=== PATIENT | male | born 1970 | race Caucasian/White ===

== ENCOUNTER → 2017-12-23 | Outpatient (CLI) | payer OTHER ==
[~2017-12-23] MED LIST: LISINOPRIL10 MG PO
[2017-12-23 10:14] LABS: BASOPHILS # (AUTO) 0.1 (0.0-0.1); BASOPHILS % 0.6 % (0.0-1.0); EOSINOPHILS # (AUTO) 0.2 (0.0-0.4); HEMATOCRIT 46.8 % (38.2-49.6); MEAN CORPUSCULAR HEMOGLOBIN 36.3 pg (28-32); MEAN CORPUSCULAR HGB CONC 34.2 g/dL (31-35); MEAN CORPUSCULAR VOLUME 106.1 fL (81-99); MONOCYTES # (AUTO) 0.8 (0.2-0.8); MONOCYTES % 7.7 % (4.4-11.3); NEUTROPHILS # (AUTO) 7.1 (2.1-6.9); NEUTROPHILS % 69.4 % (38.7-80.0); PLATELET COUNT 230 x10e3/uL (140-360); RED BLOOD COUNT 4.41 x10e6/uL (4.3-5.7); RED CELL DISTRIBUTION WIDTH 13.4 % (11.7-14.4)
[2017-12-23 10:29] LABS: INR 0.93; PROTHROMBIN TIME 13.3 seconds (11.9-14.5)
[2017-12-23 10:30] LABS: PARTIAL THROMBOPLASTIN TIME 27.7 seconds (23.8-35.5)
[2017-12-23 10:32] LABS: ALBUMIN 4.1 g/dL (3.5-5.0); BILIRUBIN,DIRECT 0.4 mg/dL (0.0-0.5)
[2017-12-23 10:51] LABS: FERRITIN 1657.7 ng/mL (21.81-274.66)
--- NOTE | 2017-12-26 07:32 | Diagnostic Imaging Report ---
PROCEDURE:ABDOMINAL ULTRASOUND COMPARISON:None. INDICATIONS:ELEVATED LIVER ENZYMES FINDINGS: Exam somewhat limited by bowel gas. Liver: Measures 17.5 cm. Increased hepatic parenchymal echogenicity. No focal mass. Main portal vein: Measures 1 cm. Hepatopetal flow. Gallbladder: No distension, thickening, pericholecystic fluid, or stone. Common Bile Duct: Measures 0.3 cm. No echogenic filling defect. Sonographic Andujar's sign: Negative. Right kidney: Measures 10.1 cm. No solid or cystic mass, echogenic calculi, or hydronephrosis. Normal parenchymal echogenicity. Left kidney: Measures 11.5 cm. No solid or cystic mass, echogenic calculi, or hydronephrosis. Normal parenchymal echogenicity. Spleen: Measures 10.6 cm. Pancreas: Not evaluated due to overlying bowel gas. Inferior vena cava: Normal. Aorta: Limited visualization of the proximal and mid aorta due to bowel gas. Ascites: None. CONCLUSION: Hepatic steatosis with hepatomegaly. Dictated by: JERMAIN WRIGHT M.D. on 12/26/2017 at 7:41 Electronically approved by: JERMAIN WRIGHT M.D. on 12/26/2017 at 7:41
== END ==
LOC: RAD 07:47
PROVIDERS: ATTEND Internal Medicine Gastroenterology
DX: R74.8 Abnormal levels of other serum enzymes (principal); D12.4 Benign neoplasm of descending colon; K21.0 Gastro-esophageal reflux disease with esophagitis; I10 Essential (primary) hypertension; E66.9 Obesity, unspecified; Z71.3 Dietary counseling and surveillance
CPT/HCPCS: 36415; 76700; 80076; 82728; 83540; 84466; 85025; 85610; 85730; 86039; 86255; 86704; 86705; 86706; 86707; 87340; 87350; 87522

== ENCOUNTER → 2018-04-21 | Outpatient (CLI) | payer OTHER ==
[~2018-04-21] MED LIST changes: +IOPAMIDOL 370 MG/ML 200 ML INFUS..BTL INJ ONE; +SODIUM CHLORIDE 0.9% 50ML 50 ML ONE
[2018-04-21 09:54] LABS: BLOOD UREA NITROGEN 18 mg/dL (7-26); BUN/CREATININE RATIO 17 (6-25); CREATININE, SERUM 1.04 mg/dL (0.72-1.25); EST GLOMERULAR FILTRATION RATE > 60 ML/MIN (60-)
--- NOTE | 2018-04-21 10:53 | Diagnostic Imaging Report ---
EXAMINATION: CT of the chest with contrast, PE protocol. TECHNIQUE: Spiral CT images of the chest were performed from the lung apices through the level of the adrenal glands after the IV administration of 85 cc of Isovue-370. Thin section reconstructions were obtained with special concentration on the pulmonary arteries. Less than optimal bolus timing. Dose parameters were modified to effectively make the dose as low as possible to the patient. DLP: 566.42 mGy-cm COMPARISON: <none> CLINICAL HISTORY:Chest pain DISCUSSION: Lungs: No filling defects are identified in the main, right or left pulmonary arteries to their segmental and subsegmental levels, to suggest pulmonary embolism. No pulmonary nodules, consolidation or mass. Airways: <The major airways are clear.> Pleura: <There is no evidence of pleural effusion or pneumothorax.> Heart and mediastinum: <The heart and the mediastinum are normal.> Combined origin of the innominate artery and left common carotid artery. Abdomen: <The visualized parts of the upper abdomen are unremarkable.> Bones and soft tissues: <The thoracic skeleton is normal for age. The soft tissues are unremarkable.> IMPRESSION: <Normal Chest CT without evidence of pulmonary emboli Signed by: Dr. Vamsi Leary DO on 04/21/2018 10:50 AM
== END ==
LOC: CT 08:57
PROVIDERS: ATTEND Internal Medicine Cardiovascular Disease
DX: R07.1 Chest pain on breathing (principal)
CPT/HCPCS: 36415; 71260; 82565; 84520; Q9967